=== PATIENT | female | born 1995 | race Two or more races ===

== ENCOUNTER 2022-06-20 21:12 | Emergency (ER) | payer OTHER ==
[~2022-06-20] VITALS: Ht 162.6 cm; Wt 55.3 kg
== END 2022-06-20 23:50 | disposition home or self-care (01) ==
LOC: ER 21:12
DX: O20.9 Hemorrhage in early pregnancy, unspecified (principal); Z3A.08 8 weeks gestation of pregnancy

== ENCOUNTER 2022-11-22 02:01 | Outpatient (CLI) | payer OTHER ==
[2022-11-22] MEDS ORDERED: PRENATAL TABLE1 EAC1 PO (03:13)
== END 2022-11-22 09:36 | disposition home or self-care (01) ==
LOC: OBS/DEL 02:01
PROVIDERS: ATTEND Obstetrics & Gynecology Maternal & Fetal Medicine
DX: O26.853 Spotting complicating pregnancy, third trimester (principal); O23.43 Unspecified infection of urinary tract in pregnancy, third trimester; N39.0 Urinary tract infection, site not specified; Z3A.30 30 weeks gestation of pregnancy

== ENCOUNTER 2022-11-23 11:40 | Inpatient (IN) | payer OTHER ==
[~2022-11-23] VITALS: Ht 162.6 cm; Wt 61.2 kg
[~2022-11-23 11:40] MED LIST: PRENATAL TABLE1 EAC1 PO
== END 2022-11-25 11:47 | disposition home or self-care (01) | DRG 833 ==
LOC: OB/GYN 11:40
PROVIDERS: ADMIT Obstetrics & Gynecology Gynecology; ATTEND Obstetrics & Gynecology Gynecology
PROC: 4A1HXCZ Monitoring of Products of Conception, Cardiac Rate, External Approach (ICD-10-PCS; principal; 2022-11-23)
PROC: 30233N1 Transfusion of Nonautologous Red Blood Cells into Peripheral Vein, Percutaneous Approach (ICD-10-PCS; 2022-11-24)
DX: O99.013 Anemia complicating pregnancy, third trimester (principal); Z3A.29 29 weeks gestation of pregnancy; D50.0 Iron deficiency anemia secondary to blood loss (chronic); Z20.822 Contact with and (suspected) exposure to COVID-19

== ENCOUNTER 2022-12-26 16:40 | Outpatient (CLI) | payer OTHER | END 2022-12-26 17:51 | disposition home or self-care (01) | LOC: NST 16:40 | PROVIDERS: ATTEND Obstetrics & Gynecology Gynecology | DX: Z34.83 Encounter for supervision of other normal pregnancy, third trimester (principal) ==

== ENCOUNTER 2023-01-02 12:47 | Inpatient (IN) | payer OTHER ==
[~2023-01-02] VITALS: Ht 162.6 cm; Wt 64.0 kg
== END 2023-01-04 14:54 | disposition home or self-care (01) | DRG 807 ==
LOC: LDR 12:47 → OB/GYN 22:09
PROVIDERS: ADMIT Obstetrics & Gynecology; ATTEND Obstetrics & Gynecology
PROC: 10E0XZZ Delivery of Products of Conception, External Approach (ICD-10-PCS; principal; 2023-01-02)
PROC: 0UQMXZZ Repair Vulva, External Approach (ICD-10-PCS; 2023-01-02)
PROC: 4A1HXCZ Monitoring of Products of Conception, Cardiac Rate, External Approach (ICD-10-PCS; 2023-01-02)
DX: O71.82 Other specified trauma to perineum and vulva (principal); Z37.0 Single live birth; Z3A.36 36 weeks gestation of pregnancy; Z20.822 Contact with and (suspected) exposure to COVID-19

== ENCOUNTER 2023-08-17 23:32 | Emergency (ER) | payer OTHER ==
[~2023-08-17] VITALS: Ht 162.6 cm; Wt 64.4 kg
[2023-08-18 01:51] LABS: HEMATOCRIT 29.8 % (36.0-45.00); HEMOGLOBIN 9.9 g/dL (12.0-15.00); MEAN CELL VOLUME 78.6 fL (80.00-100.00); MEAN CORPUSCULAR HGB CONC 33.1 g/dl (32.0-36.0); PLATELET COUNT 286 K/uL (150-450); RED BLOOD COUNT 3.79 M/uL (4.00-6.00); RED CELL DISTRIBUTION WIDTH 14.5 % (11.5-14.5)
[2023-08-18 02:58] LABS: ALBUMIN 3.7 gm/dL (3.4-5.0); BILIRUBIN TOTAL 0.4 mg/dL (0.3-1.2); CALCIUM 8.8 mg/dL (8.5-10.1); CREATININE SERUM 0.58 mg/dL (0.55-1.02); GFR 122.91; GLOBULINA 3.7 G/DL (2.4-3.5); POTASSIUM 3.38 mEq/L (3.5-5.1); TOTAL PROTEIN 7.4 gm/dL (6.4-8.2)
[2023-08-18] MEDS ORDERED: PEPCID40 MG PO (05:18)
== END 2023-08-18 05:23 ==
LOC: ER 23:32
PROVIDERS: General Practice
DX: K62.5 Hemorrhage of anus and rectum (principal)

== ENCOUNTER 2024-03-05 16:08 | Inpatient (IN) | payer OTHER ==
[~2024-03-05] VITALS: Ht 162.6 cm; Wt 71.2 kg
[~2024-03-05 16:08] MED LIST changes: +PEPCID40 MG PO
[2024-03-05] MEDS ORDERED: RINGERS SOLUTION,LACTATED 1,000 ML IV SCH (16:45)
[2024-03-05] MEDS ORDERED: SOD FERRIC GLUC COMPLX/SUCROSE 62.5 MG/5 ML AMPUL IV SCH (18:00)
[2024-03-05] MEDS ORDERED: GUAIFENESIN 200 MG/10 ML BLIST.PACK PO SCH (18:18)
[2024-03-05] MEDS ORDERED: ACETAMINOPHEN 500 MG GEL..CAP PO PRN (18:30)
[2024-03-06] MEDS ORDERED: IRON FUM,PS/FOLIC/BCOMP,C NO.9 1 CAP CAPSULE PO SCH (09:00)
[2024-03-06] MEDS ORDERED: PAXLOVID PO SCH (17:00)
[2024-03-06 20:39] LABS: HEMATOCRIT 28.6 % (36.0-45.00); HEMOGLOBIN 9.2 g/dL (12.0-15.00); MEAN CELL VOLUME 71.1 fL (80.00-100.00); MEAN CORPUSCULAR HGB CONC 32.3 g/dl (32.0-36.0); PLATELET COUNT 239 K/uL (150-450); RED BLOOD COUNT 4.02 M/uL (4.00-6.00)
== END 2024-03-07 10:30 | disposition home or self-care (01) | DRG 812 ==
LOC: OB/GYN 16:08
PROVIDERS: ADMIT Obstetrics & Gynecology; ATTEND Obstetrics & Gynecology
PROC: 8E0ZXY6 Isolation (ICD-10-PCS; principal; 2024-03-05)
PROC: 30233N1 Transfusion of Nonautologous Red Blood Cells into Peripheral Vein, Percutaneous Approach (ICD-10-PCS; 2024-03-06)
DX: D64.9 Anemia, unspecified (principal); Z20.822 Contact with and (suspected) exposure to COVID-19

== ENCOUNTER 2025-04-13 16:45 | Inpatient (IN) | payer OTHER ==
[~2025-04-13] VITALS: Ht 152.4 cm; Wt 77.6 kg
[2025-04-13 11:10] VITALS: BP 100/61
[2025-04-13] MEDS ORDERED: hydrOXYzine PAMOATE 25 MG CAPSULE PO PRN (17:15)
[2025-04-13] MEDS ORDERED: RINGERS SOLUTION,LACTATED 1,000 ML IV SCH (17:15)
[2025-04-13 17:31] LABS: BASO % 0.3 % (0.1-1.2); EOS # 0.12 (0.04-0.54); EOS % 1.6 % (0.7-7.0); LYMPH # 1.73 (1.18-3.74); LYMPH % 22.4 % (19.3-53.1); MEAN CORPUSCULAR HEMOGLOBIN 20.8 pg (25.6-32.2); MONO # 0.57 (0.24-0.82); MONO % 7.4 % (4.7-12.5); NEUT # 5.25 (1.56-6.13); NEUT % 67.9 % (34.0-71.1); PLATELET COUNT 322 K/uL (163-369); RED BLOOD COUNT 3.56 M/uL (3.93-5.22); RED CELL DISTRIBUTION WIDTH 15.6 % (11.6-14.4)
[2025-04-13 17:38] VITALS: BP 100/61
[2025-04-13 17:38] LABS: HEMATOCRIT 24.3 % (34.1-44.9)
[2025-04-13 17:39] LABS: HEMOGLOBIN 7.4 g/dL (11.2-15.7)
[2025-04-13 17:58] LABS: INR 0.97; PARTIAL THROMBOPLASTIN TIME 21.3 SECONDS (22.0-34.0); PROTHROMBIN TIME 10.6 SECONDS (9.0-11.5)
[2025-04-13 20:13] VITALS: BP 103/65
[2025-04-13 23:20] VITALS: BP 104/63
[2025-04-14] VITALS (8 sets, daily range): BP systolic 90–102; BP diastolic 54–63; O2SAT 98
[2025-04-14] MEDS ORDERED: ONDANSETRON HCL 2 MG/ML VIAL IV PRN (00:30)
[2025-04-14 13:00] LABS: BASO % 0.6 % (0.1-1.2); EOS % 1.6 % (0.7-7.0); LYMPH # 1.58 (1.18-3.74); LYMPH % 24.8 % (19.3-53.1); MEAN CORPUSCULAR HEMOGLOBIN 22.6 pg (25.6-32.2); MONO # 0.55 (0.24-0.82); MONO % 8.6 % (4.7-12.5); NEUT # 4.06 (1.56-6.13); NEUT % 63.9 % (34.0-71.1); PLATELET COUNT 253 K/uL (163-369); RED BLOOD COUNT 3.71 M/uL (3.93-5.22)
[2025-04-14 13:02] LABS: HEMATOCRIT 26.7 % (34.1-44.9); HEMOGLOBIN 8.4 g/dL (11.2-15.7); RED CELL DISTRIBUTION WIDTH 19.2 % (11.6-14.4)
[2025-04-14] MEDS ORDERED: SOD FERRIC GLUC COMPLX/SUCROSE 62.5 MG/5 ML AMPUL IV ONE ×2 (17:09→17:45)
[2025-04-14] MEDS ORDERED: RINGERS SOLUTION,LACTATED 1,000 ML IV SCH (17:45)
[2025-04-15 04:00] VITALS: BP 101/62
[2025-04-15 06:23] VITALS: BP 89/59; O2SAT 98
== END 2025-04-15 09:30 | disposition home or self-care (01) | DRG 833 ==
LOC: OBS/DEL 16:45 → LDR 17:42 → OB/GYN 04-14 18:44 → LDR 04-14 18:46
PROVIDERS: ADMIT Obstetrics & Gynecology Gynecology; ATTEND Obstetrics & Gynecology Gynecology
PROC: 4A1HXCZ Monitoring of Products of Conception, Cardiac Rate, External Approach (ICD-10-PCS; principal; 2025-04-13)
PROC: 30233N1 Transfusion of Nonautologous Red Blood Cells into Peripheral Vein, Percutaneous Approach (ICD-10-PCS; 2025-04-14)
DX: O99.013 Anemia complicating pregnancy, third trimester (principal); D64.9 Anemia, unspecified; Z3A.39 39 weeks gestation of pregnancy

== ENCOUNTER 2025-05-07 06:32 | Inpatient (IN) | payer OTHER ==
[~2025-05-07] VITALS: Ht 162.6 cm; Wt 78.9 kg
[2025-05-07] VITALS (9 sets, daily range): BP systolic 105–118; BP diastolic 51–72; O2SAT 98
[2025-05-07] MEDS ORDERED: AMPICILLIN SODIUM 2,000 MG VIAL ONE (07:11)
[2025-05-07] MEDS ORDERED: OXYTOCIN 500 ML IV ONE (07:15)
[2025-05-07] MEDS ORDERED: MAXFE CAPLET1 EAC1 PO (07:57)
[2025-05-07] MEDS ORDERED: RINGERS SOLUTION,LACTATED 1,000 ML IV SCH (08:15)
[2025-05-07] MEDS ORDERED: AMPICILLIN SODIUM 2,000 MG VIAL IV ONE (08:15)
[2025-05-07 08:50] LABS: BASO % 0.6 % (0.1-1.2); EOS # 0.26 (0.04-0.54); EOS % 3.3 % (0.7-7.0); HEMATOCRIT 31.1 % (34.1-44.9); HEMOGLOBIN 9.9 g/dL (11.2-15.7); LYMPH # 2.39 (1.18-3.74); LYMPH % 30.3 % (19.3-53.1); MEAN CORPUSCULAR HEMOGLOBIN 23.5 pg (25.6-32.2); MONO # 0.67 (0.24-0.82); MONO % 8.5 % (4.7-12.5); NEUT % 56.9 % (34.0-71.1); PLATELET COUNT 241 K/uL (163-369); RED BLOOD COUNT 4.21 M/uL (3.93-5.22)
[2025-05-07 08:51] LABS: RED CELL DISTRIBUTION WIDTH 24.7 % (11.6-14.4)
[2025-05-07] MEDS ORDERED: MORPHINE SULFATE 4 MG/ML CARTRIDGE IV STA (10:10)
[2025-05-07] MEDS ORDERED: ERYTHROMYCIN BASE OPHT 1GM EACH TUBE OP ONE ×2 (11:19→14:15)
[2025-05-07] MEDS ORDERED: OXYTOCIN 20 UNITS/1000ML RL PIGGYBAG IV ONE (11:19)
[2025-05-07] MEDS ORDERED: CHLORHEXIDINE GLUCONATE 120 ML BOTTLE TOP ONE ×2 (11:19→14:15)
[2025-05-07] MEDS ORDERED: LIDOCAINE HCL 1% 10ML VIAL ONE (11:20)
[2025-05-07 11:37] LABS: INR 0.94; PARTIAL THROMBOPLASTIN TIME 25.2 SECONDS (22.0-34.0); PROTHROMBIN TIME 10.3 SECONDS (9.0-11.5)
[2025-05-07] MEDS ORDERED: AMPICILLIN SODIUM 1,000 MG VIAL IV SCH (12:00)
[2025-05-07] MEDS ORDERED: MORPHINE SULFATE 2 MG/ML CARTRIDGE IV STA (12:14)
[2025-05-07] MEDS ORDERED: ACETAMINOPHEN 325 MG TABLET PO SCH (13:00)
[2025-05-07] MEDS ORDERED: NALOXONE HCL 0.4 MG/ML AMPUL ONE (13:20)
[2025-05-07] MEDS ORDERED: IBUprofen 400 MG TABLET PO PRN (13:45)
[2025-05-07] MEDS ORDERED: OXYTOCIN 1,000 ML IV SCH (13:45)
[2025-05-07] MEDS ORDERED: OxyCODONE HCL/APAP UD (PERCOCET) PO PRN (13:45)
[2025-05-07] MEDS ORDERED: OxyCODONE HCL 5 MG TABLET (ROXICODONE) PO PRN (14:00)
[2025-05-07] MEDS ORDERED: LIDOCAINE HCL 1% 10ML VIAL IJ ONE (14:15)
[2025-05-07] MEDS ORDERED: NALOXONE HCL 0.4 MG/ML AMPUL IV ONE (14:15)
[2025-05-08] VITALS: BP 105/67
[2025-05-08 08:45] VITALS: BP 119/68
[2025-05-08 17:26] VITALS: BP 121/72
[2025-05-09 01:00] VITALS: BP 101/55
[2025-05-09 08:00] VITALS: BP 104/51
== END 2025-05-09 12:11 | disposition home or self-care (01) | DRG 807 ==
LOC: LDR 06:32 → OB/GYN 06:32
PROVIDERS: ADMIT Obstetrics & Gynecology; ATTEND Obstetrics & Gynecology
PROC: 10E0XZZ Delivery of Products of Conception, External Approach (ICD-10-PCS; principal; 2025-05-07)
PROC: 0UQMXZZ Repair Vulva, External Approach (ICD-10-PCS; 2025-05-07)
PROC: 4A1HXCZ Monitoring of Products of Conception, Cardiac Rate, External Approach (ICD-10-PCS; 2025-05-07)
DX: O71.82 Other specified trauma to perineum and vulva (principal); Z37.0 Single live birth; Z3A.39 39 weeks gestation of pregnancy